=== PATIENT | female | born 1940 | race Caucasian/White ===

== ENCOUNTER → 2017-02-04 | Outpatient (CLI) | payer MEDICARE, BC ==
--- NOTE | 2017-02-04 09:58 | MM ---
Reason for exam: additional evaluation requested from prior study. Last mammogram was performed 1 year ago. History: Patient is postmenopausal. Family history of breast cancer in maternal grandmother at age 50. Took estrogen for 5 years beginning at age 58. Physical Findings: Nurse did not find any significant physical abnormalities on exam. MG 3D Diag Mammo W/Cad FLORY Bilateral CC and MLO view(s) were taken. Prior study comparison: January 30, 2016, right breast MG 3d work up w/cad RT. January 14, 2016, bilateral MG screening mammo w CAD. The breast tissue is heterogeneously dense. This may lower the sensitivity of mammography. No suspicious calcifications are seen. There is chronic nodularity bilaterally. No significant new findings when compared with previous films. These results were verbally communicated with the patient and result sheet given to the patient on 02/04/17. ASSESSMENT: Benign, BI-RAD 2 RECOMMENDATION: Routine screening mammogram of both breasts in 1 year.
== END | disposition home or self-care (01) ==
LOC: RADMAMWWP 08:58
PROVIDERS: ATTEND Family Medicine
DX: N64.9 Disorder of breast, unspecified (principal)
CPT/HCPCS: G0204; G0279

== ENCOUNTER → 2018-02-25 | Outpatient (CLI) | payer MEDICARE, BC ==
--- NOTE | 2018-03-01 14:22 | MM ---
Reason for exam: screening (asymptomatic). Last mammogram was performed 1 year and 1 month ago. History: Patient is postmenopausal. Family history of breast cancer in maternal grandmother at age 50. Took estrogen for 5 years beginning at age 58. Physical Findings: A clinical breast exam by your physician is recommended on an annual basis and results should be correlated with mammographic findings. MG 3D Screening Mammo W/Cad Bilateral CC and MLO view(s) were taken. Prior study comparison: February 04, 2017, bilateral MG 3d diag mammo w/cad FLORY. January 30, 2016, right breast MG 3d work up w/cad RT. The breast tissue is heterogeneously dense. This may lower the sensitivity of mammography. Finding: There are typically benign vascular calcifications in the left breast. There is a chronic nodularity in the left breast. There is no discrete abnormality. ASSESSMENT: Benign, BI-RAD 2 RECOMMENDATION: Routine screening mammogram of both breasts in 1 year.
== END | disposition home or self-care (01) ==
LOC: RADMAMWWP 07:50
PROVIDERS: ATTEND Family Medicine
DX: Z12.31 Encounter for screening mammogram for malignant neoplasm of breast (principal)
CPT/HCPCS: 77063; 77067

== ENCOUNTER → 2022-02-12 | Outpatient (CLI) | payer MEDICARE, BC ==
--- NOTE | 2022-02-12 21:58 | BD ---
EXAMINATION TYPE: Axial Bone Density DATE OF EXAM: 02/12/2022 COMPARISON: 11.23.2013 CLINICAL HISTORY: 81 years year old Female. ICD-10 CODE: M85.80 OTH DISRD OF BONE DENSITY AND STRUCT URE Height: 62.8 Weight: 114 FRAX RISK QUESTIONS: NOTHING TO NOTE HERE RISK FACTORS HISTORY OF: Postmenopausal woman: YES, AT 48 YRS OLD Hyperparathyroidism: NO Adrenal Insufficiency: NO MEDICATIONS: Osteoporosis Medications: GENERIC FOR FOSAMAX, FOR ABOUT 4 YRS Additional Medications: BP MEDS, CALCIUM WITH D3 Additional History: HYPERTENSION, OSTEOPOROSIS, EXAM MEASUREMENTS: Bone mineral densitometry was performed using the [employer] System. Bone mineral density as measured about the Lumbar spine is: ----- L1-L4(G/cm2): 1.009 T Score Values are as follows: ----- L1: -2.0 ----- L2: -2.3 ----- L3: -1.0 ----- L4: -0.1 ----- L1-L4: -1.4 Bone mineral density has: Decreased -2.7% since study of: 11.23.2013 Bone mineral density about the R hip (g/cm2): 0.794 Bone mineral density about the L hip (g/cm2): 0.824 T Score values are as follows: -----R Neck: -1.7 -----L Neck: -1.7 -----R Total: -1.7 -----L Total: -1.5 Bone mineral density has: Decreased -0.1% since study of: 11.23.2013 FRAX%s: The graph provided illustrates a 17.8% chance for a major osteoporotic fx and a 5.0% chance f or the hips probability for fx in 10 years time. IMPRESSION: Osteopenia (T Score between -2.5 and -1). There is slightly increased risk of fracture and the patient may be considered for treatment. Re-Screen 2-5 years. NOTE: T-SCORE=SD OF THE YOUNG ADULT MEAN.
== END | disposition home or self-care (01) ==
LOC: RADBDWWP 09:20
PROVIDERS: ATTEND Family Medicine
DX: M85.80 Other specified disorders of bone density and structure, unspecified site (principal)
CPT/HCPCS: 77080

== ENCOUNTER → 2024-01-04 | Outpatient (CLI) | payer MEDICARE, BC ==
--- NOTE | 2024-01-05 12:43 | MR ---
EXAMINATION TYPE: MR knee RT wo con DATE OF EXAM: 01/04/2024 COMPARISON: Outside right knee x-ray December 21, 2023 HISTORY: Right knee pain for 6 months. TECHNIQUE: Multiplanar, multisequence images of the knee is performed without IV contrast. FINDINGS: MEDIAL MENISCUS: Medial extrusion of medial meniscus Triangular and globular increased signal posteri or horn extends to the inferior articular surface. LATERAL MENISCUS: Subtle horizontal increased signal does not definitively extend to articular surfac e is centered in the body seen best on coronal images. CRUCIATE LIGAMENTS: The anterior and posterior cruciate ligaments are intact and unremarkable. COLLATERAL LIGAMENTS: The medial collateral ligament and lateral collateral ligament complex are inta ct and unremarkable. EXTENSOR MECHANISM: Visualized quadriceps and patellar tendons are intact. EFFUSION: Small to moderate size suprapatellar joint effusion. POPLITEAL CYST: Small size popliteal/montenegro cyst sagittal image 12 measuring 3.5 cm long axis. TRICOMPARTMENT SPACES: Moderate tricompartment joint space loss. Mild to moderate spurring medial tib iofemoral compartment. CARTILAGE: Chondromalacia patella with cartilaginous loss along the posterior patellar pole. Cartilag inous loss medial tibiofemoral compartment. BONE MARROW SIGNAL: Nonspecific 1.1 cm low T1 and increased T2 signal lesion lateral aspect proximal tibial metaphysis on image 22 favors nonaggressive etiology. OTHER: No additional significant abnormality is appreciated. IMPRESSION: 1. Full-thickness tear posterior horn medial meniscus. 2. Fairly moderate tricompartment degenerative changes as detailed above. 3. Small to moderate-sized suprapatellar joint effusion. 4. Small sized popliteal cyst. 5. Probable intrasubstance tear central body lateral meniscus.
== END | disposition home or self-care (01) ==
LOC: RADMRIMAIN 10:38
PROVIDERS: ATTEND Orthopaedic Surgery
DX: S83.241A Other tear of medial meniscus, current injury, right knee, initial encounter (principal); M17.11 Unilateral primary osteoarthritis, right knee; M71.21 Synovial cyst of popliteal space [Baker], right knee; X58.XXXA Exposure to other specified factors, initial encounter

== ENCOUNTER 2024-02-16 07:25 | Day surgery (SDC) | payer MEDICARE, BC ==
--- NOTE | 2024-02-16 | HP ---
HISTORY AND PHYSICAL Surgery is scheduled for 02/16/2024. HISTORY OF PRESENT ILLNESS: Thais Jones is an 83-year-old patient seen with progressive right knee pain. We discussed options. She elected to proceed with right knee arthroscopy. Consent was obtained. Clearance was provided by Dr. Acosta. PAST MEDICAL HISTORY: Hypertension, hyperlipidemia, cardiovascular disease. PAST SURGICAL HISTORY: Noncontributory. DAILY MEDICATIONS: 1. Aspirin. 2. Losartan. 3. Multivitamin. ALLERGIES: None. SOCIAL HISTORY: She denies tobacco use. PHYSICAL EVALUATION OF THE RIGHT KNEE: Her range of motion is -2 to 120 degrees. Mild effusion. Tenderness, medial joint line with a positive medial Gallito's. Ligaments stable. Hip rotation without pain. Distal neurovascular exam is intact. IMAGING STUDIES: Radiographs of the right knee revealed moderate osteoarthritis. MRI of right knee revealed medial meniscal tear, moderate osteoarthritis, lateral meniscal tear. IMPRESSION: 1. Internal derangement of right knee with medial and lateral meniscal tears. 2. Hypertension. PLAN: Right knee arthroscopy with partial medial/lateral meniscectomy and debridement. MMODL / IJN: [id number] /
[~2024-02-16 07:25] MED LIST: DEXAMETHASONE SOD PHOSPHATE 4 MG/ML 1 ML VIAL IV ONE; HYDROmorphone 0.5 MG/0.5 ML SYRINGE IVP PRN; LIDOCAINE 1% (10MG/ML) FOR IV START INTRADERMA PRN; MIDAZOLAM 2 MG/2 ML VIAL IV PRN; ONDANSETRON 4 MG/2 ML VIAL IVP ONE
[2024-02-16] MEDS ORDERED: ONDANSETRON 4 MG/2 ML VIAL ONE (08:01)
[2024-02-16] MEDS: LACTATED RINGERS 1,000 ML IV SCH (08:14)
[2024-02-16] MEDS: DEXAMETHASONE SOD PHOSPHATE 4 MG/ML 1 ML VIAL IVP ONE (08:15)
[2024-02-16] MEDS: ONDANSETRON 4 MG/2 ML VIAL IVP ONE (08:15)
[2024-02-16] MEDS: BUPIVACAINE (PF) 0.25% 30 ML VIAL SQ ONE ×2 (08:18→08:44)
[2024-02-16] MEDS ORDERED: PHENYLEPHRINE-0.9% NACL SYG 1,000 MCG/10 ML SYRINGE ONE (08:20)
[2024-02-16] MEDS ORDERED: fentaNYL (PF) 50 MCG/ML 2 ML AMP ONE (08:20)
[2024-02-16] MEDS ORDERED: PROPOFOL 10 MG/ML 20 ML VIAL IV ONE (08:20)
[2024-02-16] MEDS ORDERED: LIDOCAINE 1% INJ 10MG/ML (20 ML MDV) ONE (08:20)
--- NOTE | 2024-02-16 09:14 | P.OP ---
Date of Procedure: 02/16/24 Preoperative Diagnosis: Internal derangement right knee Postoperative Diagnosis: 1. Tear medial and lateral meniscus right knee 2. Grade IV chondromalacia medial femoral condyle right knee 3. Reactive synovitis medial, lateral and suprapatellar compartments right knee Procedure(s) Performed: 1. Arthroscopic partial medial and lateral meniscectomy right knee 2. Arthroscopic microfracture medial femoral condyle right knee 3. Arthroscopic partial synovectomy medial, lateral and suprapatellar compartments right knee Anesthesia: HADLEYA, local Surgeon: Elbert Madrigal Estimated Blood Loss (ml): 6 Pathology: none sent Condition: stable Disposition: PACU Indications for Procedure: 83-year-old patient seen with progressive right knee pain. After having treatment options discussed, she elected to proceed with arthroscopy. Operative Findings: See description of procedure Description of Procedure: Patient was taken to the operative suite. Patient underwent a general anesthetic by the department of anesthesia. Patient was given preoperative antibiotics. The right lower extremity was placed in a well-padded arthroscopic leg lee. The right leg was prepped and draped in the normal sterile orthopedic fashion. A lateral parapatellar and suprapatellar incision was made. Trochars were inserted. Arthroscopy was initiated. Suprapatellar pouch revealed diffuse thick reactive synovitis. The patellofemoral joint appeared to articular congruently. There was grade II chondromalacia of the patella without significant osteochondral tears. The scope was guided into the medial gutter. No loose bodies or plica were identified. The scope was then guided into the medial compartment. A medial parapatellar incision was made. Trocar inserted followed by probe. There was a complex tear involving the posterior horn and mid body of the medial meniscus. There was an area of grade III/IV chondromalacia medial femoral condyle with some osteochondral flap tears. There was thick reactive synovitis anteriorly. I performed a partial medial meniscectomy getting down to stable meniscal tissue. I performed a chondroplasty of the medial femoral condyle getting down to stable osteochondral tissue. I performed a partial synovectomy decompressing the thick reactive synovitis anteriorly. I did note an area of grade IV chondromalacia medial femoral condyle weightbearing surface measuring just about a centimeter in diameter. I introduced a microfracture awl and I performed a microfracture to that area of exposed bone penetrating the bone with resultant bleeding at the microfracture site. The residual meniscus was probed and was found to be stable. The residual osteochondral surface was stable. There was good decompression of the synovitis. Scope and probe were then guided into the intercondylar notch. Cruciates were identified, probed and found to be stable. The scope and probe were then guided into lateral compartment. There was a radial tear involving the mid bilateral meniscus. There were grade I chondromalacia changes throughout the lateral compartment without tears. There was thick reactive synovitis anteriorly. I performed a partial lateral meniscectomy getting down to stable meniscal tissue. I performed a partial synovectomy decompressing the reactive synovitis. The residual meniscus was stable. There was good decompression of the synovitis. The scope was in guided back into the suprapatellar compartment. I introduced a motorized shaver into the suprapatellar compartment. I debrided some piecemeal fragments of meniscus that I encountered. I performed a partial synovectomy. The shaver was removed. There was good decompression of the synovitis. I now took one more look around the entire knee, no residual debris. Instruments were now removed from the joint. The joint was infiltrated with .25% Marcaine. Steri-Strips were applied to the portal sites. Sterile dressings were applied. The patient was placed into a ZEINAB hose. No tourniquet was utilized. The patient was awakened, transferred to a bed and taken to recovery stable satisfactory condition.
[2024-02-16 09:54] VITALS: TEMP 97
[2024-02-16 09:55] VITALS: RESP 16
[2024-02-16 10:52] VITALS: BP 179/85; PULSE 61
== END 2024-02-16 11:10 | disposition home or self-care (01) ==
LOC: OR 07:25
PROVIDERS: ATTEND Orthopaedic Surgery
DX: S83.281A Other tear of lateral meniscus, current injury, right knee, initial encounter (principal); S83.241A Other tear of medial meniscus, current injury, right knee, initial encounter; M65.162 Other infective (teno)synovitis, left knee; I25.10 Atherosclerotic heart disease of native coronary artery without angina pectoris; I10 Essential (primary) hypertension; E78.5 Hyperlipidemia, unspecified; M22.41 Chondromalacia patellae, right knee; Z79.82 Long term (current) use of aspirin; Z79.899 Other long term (current) drug therapy; X58.XXXA Exposure to other specified factors, initial encounter
CPT/HCPCS: 29880; 29879; J1100; J0690; J2405; J2001; J3010; J2704; J2371; J0665

== ENCOUNTER → 2025-01-26 | Outpatient (CLI) | payer MEDICARE, BC ==
--- NOTE | 2025-01-31 08:43 | MR ---
EXAMINATION TYPE: MR thoracic spine wo/w con DATE OF EXAM: 01/26/2025 COMPARISON: Prior outside MRI June 15, 2024 HISTORY: Follow up post tumor removed from spine. TECHNIQUE: Multiplanar, multisequence imaging of thoracic spine is performed without and with IV cont rast, patient injected with 5 cc of gadolinium. FINDINGS: Interval surgery with multiple posterior decompression changes in the midthoracic spine. Sp inal cord shows course and caliber as it courses the thoracic spine. Subtle small new area of T2 hype rintensity along the posterior aspect at the T8-T9 disc space level. No suspicious postcontrast enhan cement however is identified to suggest persistent or recurrent mass Vertebral body heights and align ment are stable and satisfactory. Persistent mild disc space narrowing at the T7-T8 disc space level. Bilateral spondylolisthesis and disc herniations efface the anterior thecal sac and the cervical spi ne is noted on counting sagittal images. There is some nonspecific enhancement of the thoracolumbar nerve roots bilaterally redemonstrated. Ax ial images show tiny posterior disc herniation mildly effacing anterior thecal sac at T7-T8 level. Ca rdiomegaly is present. 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 No residual or new enhancing masses identified. Tiny area of myelomalacia in the posterior thorac ic spinal cord is noted. [facility], , 01/31/2025 8:41 AM
== END | disposition home or self-care (01) ==
LOC: RADMRIMAIN 06:51
PROVIDERS: ATTEND Neurological Surgery
DX: D43.4 Neoplasm of uncertain behavior of spinal cord (principal); G95.89 Other specified diseases of spinal cord
CPT/HCPCS: 72157; A9585